=== PATIENT | male | born 1970 | race Caucasian/White ===

== ENCOUNTER 2017-07-02 12:32 | Emergency (ER) | payer MEDICARE, MEDICAID ==
[~2017-07-02] VITALS: Ht 185.4 cm; Wt 116.0 kg
[~2017-07-02 12:32] MED LIST: ALBU6.7H INH; ALBU8.5H8 IH; ARIP2TAB3 PO; AZIT250T81 PO; DIPH-423 PO; LEVO25TA50 PO; LISI-600 PO; LORA10CA9 PO; METH4TAB81 PO; OXYC15TA82 PO; [UNRECOGNIZED DRUG - CODE] PO
[2017-07-02] MEDS ORDERED: LEVO25TA7 PO (15:45)
[2017-07-02] MEDS ORDERED: LISI30TA4 PO (15:45)
[2017-07-02] MEDS ORDERED: OMEP40CA37 PO (15:45)
[2017-07-02] MEDS ORDERED: AMOX-419 PO (15:45)
[2017-07-02] MEDS ORDERED: amox tr/potassium clavulanate 875/125mg TAB PO ONE (15:45)
[2017-07-02 16:05] VITALS: BP 177/111
== END 2017-07-02 16:10 | disposition home or self-care (01) ==
LOC: ER 12:33
DX: Z76.0 Encounter for issue of repeat prescription (principal); J32.1 Chronic frontal sinusitis; J32.0 Chronic maxillary sinusitis; J06.9 Acute upper respiratory infection, unspecified; E78.00 Pure hypercholesterolemia, unspecified; I10 Essential (primary) hypertension; E11.9 Type 2 diabetes mellitus without complications; E03.9 Hypothyroidism, unspecified; F15.90 Other stimulant use, unspecified, uncomplicated; Z98.890 Other specified postprocedural states; Z88.5 Allergy status to narcotic agent; Z59.0 Homelessness; Z56.0 Unemployment, unspecified; Z79.899 Other long term (current) drug therapy
CPT/HCPCS: 99283

== ENCOUNTER 2017-08-12 11:30 | Emergency (ER) | payer MEDICARE, MEDICAID ==
[~2017-08-12 11:30] MED LIST changes: +LEVO25TA7 PO; +LISI30TA4 PO
[2017-08-12] MEDS ORDERED: MUPI1OIN8 BOTHNARES (15:18)
[2017-08-12] MEDS ORDERED: SULF1TAB49 PO (15:18)
[2017-08-12] MEDS ORDERED: CEPH-572 PO (15:18)
== END 2017-08-12 12:59 | disposition left against medical advice (07) ==
LOC: ER 11:31
DX: Z53.21 Procedure and treatment not carried out due to patient leaving prior to being seen by health care provider (principal)

== ENCOUNTER 2017-08-12 13:29 | Emergency (ER) | payer MEDICAID, MEDICARE ==
[~2017-08-12] VITALS: Ht 185.4 cm; Wt 118.2 kg
[2017-08-12 13:37] VITALS: BP 145/121
[2017-08-12] MEDS ORDERED: MUPI1OIN8 BOTHNARES (15:18)
[2017-08-12] MEDS ORDERED: CEPH-572 PO (15:18)
[2017-08-12] MEDS ORDERED: SULF1TAB49 PO (15:18)
== END 2017-08-12 15:31 | disposition home or self-care (01) ==
LOC: ER 13:29
DX: L03.113 Cellulitis of right upper limb (principal); L03.114 Cellulitis of left upper limb; L03.211 Cellulitis of face; L03.811 Cellulitis of head [any part, except face]; L03.115 Cellulitis of right lower limb; F15.10 Other stimulant abuse, uncomplicated; E78.00 Pure hypercholesterolemia, unspecified; I10 Essential (primary) hypertension; E11.9 Type 2 diabetes mellitus without complications; E03.9 Hypothyroidism, unspecified; Z22.322 Carrier or suspected carrier of Methicillin resistant Staphylococcus aureus; Z98.890 Other specified postprocedural states; Z59.0 Homelessness; Z56.0 Unemployment, unspecified; Z88.5 Allergy status to narcotic agent; Z79.899 Other long term (current) drug therapy; Z88.8 Allergy status to other drugs, medicaments and biological substances
CPT/HCPCS: 99283

== ENCOUNTER 2019-11-14 18:41 | Emergency (ER) | payer MEDICAID ==
[~2019-11-14] VITALS: Ht 182.9 cm; Wt 147.0 kg
[~2019-11-14 18:41] MED LIST changes: -ALBU6.7H INH; +ALBU6.7H9 INH; +MUPI1OIN8 BOTHNARES
[2019-11-14 19:13] LABS: BASOPHILS # (AUTO) 0.1 X10'3 (0-0.2); BASOPHILS % (AUTO) 1.1 % (0-1); EOSINOPHILS # (AUTO) 0.2 X10'3 (0-0.9); EOSINOPHILS % (AUTO) 2.4 % (0-6); HEMATOCRIT 45.2 % (42.0-52.0); HEMOGLOBIN 15.3 g/dl (14.0-17.9); LYMPHOCYTES # (AUTO) 2.6 X10'3 (1.1-4.8); LYMPHOCYTES % (AUTO) 28.8 % (21-51); MEAN CORPUSCULAR HEMOGLOBIN 33.2 PG (27.0-31.0); MEAN CORPUSCULAR HGB CONC 33.9 g/dL (33.0-36.5); MEAN PLATELET VOLUME 7.3 FL (7.4-10.4); MONOCYTES # (AUTO) 0.5 X10'3 (0-0.9); MONOCYTES % (AUTO) 5.5 % (2-12); NEUTROPHILS # (AUTO) 5.5 X10'3 (1.8-7.7); NEUTROPHILS % (AUTO) 62.2 % (42-75); PLATELET COUNT 311 X10'3 (140-440); RED BLOOD COUNT 4.61 X10'6 (4.70-6.10); RED CELL DISTRIBUTION WIDTH 13.1 % (11.5-14.5); WHITE BLOOD COUNT 8.9 X10'3 (4.5-11.0)
[2019-11-14] MEDS ORDERED: methylPREDNISolone sod succ 125mg/2ml vial IV ONE (19:25)
[2019-11-14] MEDS ORDERED: normal saline 1000ML IV soln IVB ONE (19:25)
[2019-11-14 19:26] LABS: ALANINE AMINOTRANSFERASE 49 U/L (12-78); ALKALINE PHOSPHATASE 69 IU/L (46-116); ANION GAP 6 (8-16); ASPARTATE AMINO TRANSFERASE 50 U/L (10-37); BILIRUBIN,TOTAL 0.3 MG/DL (0.1-1.0); BLOOD UREA NITROGEN 17 MG/DL (7-18); BUN/CREATININE RATIO 12.1 (5.4-32.0); CALCIUM 8.7 MG/DL (8.5-10.1); CHLORIDE 103 MMOL/L (99-107); GLUCOSE 106 MG/DL (70-104); POTASSIUM 3.9 MMOL/L (3.5-5.1); SODIUM 139 MMOL/L (135-145); TOTAL CARBON DIOXIDE 29.9 MMOL/L (24-32); eGFR 53 ML/MIN
[2019-11-14 19:43] LABS: PARTIAL THROMBOPLASTIN TIME 32 SECONDS (22-32)
[2019-11-14 19:49] LABS: D-DIMER 0.33 MG/L FEU (0-0.50)
[2019-11-14] MEDS ORDERED: ALBU8HFA PO (21:11)
[2019-11-14] MEDS ORDERED: LISI40TA4 PO (21:11)
[2019-11-14] MEDS ORDERED: PRED20TA PO (21:11)
[2019-11-14] MEDS ORDERED: AZIT500T PO (21:11)
[2019-11-14 21:55] VITALS: BP 141/105
== END 2019-11-14 21:27 | disposition home or self-care (01) ==
LOC: ER 18:41
DX: S83.91XA Sprain of unspecified site of right knee, initial encounter (principal); J40 Bronchitis, not specified as acute or chronic; I51.7 Cardiomegaly; E78.00 Pure hypercholesterolemia, unspecified; I10 Essential (primary) hypertension; E11.9 Type 2 diabetes mellitus without complications; E03.9 Hypothyroidism, unspecified; F17.200 Nicotine dependence, unspecified, uncomplicated; F15.90 Other stimulant use, unspecified, uncomplicated; Z90.49 Acquired absence of other specified parts of digestive tract; Z98.890 Other specified postprocedural states; Z59.0 Homelessness; Z56.0 Unemployment, unspecified; Z88.5 Allergy status to narcotic agent; Z88.8 Allergy status to other drugs, medicaments and biological substances; Z79.2 Long term (current) use of antibiotics; Z79.899 Other long term (current) drug therapy; X58.XXXA Exposure to other specified factors, initial encounter; Y93.89 Activity, other specified; Y92.89 Other specified places as the place of occurrence of the external cause; Y99.8 Other external cause status
CPT/HCPCS: 36415; 71045; 73564; 80053; 83880; 84484; 85025; 85379; 85610; 85730; 93005; 96374; 99285; J2930; J7030

== ENCOUNTER 2020-02-07 11:22 | Emergency (ER) | payer MEDICARE, MEDICAID ==
[~2020-02-07] VITALS: Ht 185.4 cm; Wt 113.0 kg
[2020-02-07 12:56] LABS: BASOPHILS # (AUTO) 0.1 X10'3 (0-0.2); BASOPHILS % (AUTO) 0.7 % (0-1); EOSINOPHILS # (AUTO) 0.2 X10'3 (0-0.9); EOSINOPHILS % (AUTO) 1.6 % (0-6); HEMATOCRIT 45.2 % (42.0-52.0); HEMOGLOBIN 15.1 g/dl (14.0-17.9); LYMPHOCYTES # (AUTO) 1.6 X10'3 (1.1-4.8); LYMPHOCYTES % (AUTO) 15.3 % (21-51); MEAN CORPUSCULAR HEMOGLOBIN 32.5 PG (27.0-31.0); MEAN CORPUSCULAR HGB CONC 33.4 g/dL (33.0-36.5); MEAN CORPUSCULAR VOLUME 97.1 FL (78-98); MEAN PLATELET VOLUME 7.4 FL (7.4-10.4); MONOCYTES # (AUTO) 0.6 X10'3 (0-0.9); MONOCYTES % (AUTO) 5.8 % (2-12); NEUTROPHILS # (AUTO) 7.9 X10'3 (1.8-7.7); NEUTROPHILS % (AUTO) 76.6 % (42-75); PLATELET COUNT 326 X10'3 (140-440); RED BLOOD COUNT 4.65 X10'6 (4.70-6.10); RED CELL DISTRIBUTION WIDTH 14.5 % (11.5-14.5); WHITE BLOOD COUNT 10.3 X10'3 (4.5-11.0)
[2020-02-07 13:20] LABS: ALANINE AMINOTRANSFERASE 49 U/L (12-78); ALBUMIN 4.1 G/DL (3.4-5.0); ALKALINE PHOSPHATASE 57 IU/L (46-116); ANION GAP 7 (8-16); ASPARTATE AMINO TRANSFERASE 53 U/L (10-37); BILIRUBIN,TOTAL 0.5 MG/DL (0.1-1.0); BLOOD UREA NITROGEN 15 MG/DL (7-18); BUN/CREATININE RATIO 11.9 (5.4-32.0); CALCIUM 9.4 MG/DL (8.5-10.1); CHLORIDE 102 MMOL/L (99-107); CREATININE 1.26 MG/DL (0.60-1.10); GLUCOSE 130 MG/DL (70-104); POTASSIUM 4.1 MMOL/L (3.5-5.1); SODIUM 139 MMOL/L (135-145); TOTAL CARBON DIOXIDE 29.8 MMOL/L (24-32); TOTAL PROTEIN 8.3 G/DL (6.4-8.2); eGFR 60 ML/MIN
[2020-02-07] MEDS ORDERED: LEVO50TA8 PO (14:21)
[2020-02-07 14:37] VITALS: BP 199/138
== END 2020-02-07 14:42 | disposition home or self-care (01) ==
LOC: ER 11:22
DX: E03.8 Other specified hypothyroidism (principal); M79.606 Pain in leg, unspecified; R53.83 Other fatigue; E78.00 Pure hypercholesterolemia, unspecified; I10 Essential (primary) hypertension; E11.9 Type 2 diabetes mellitus without complications; G89.29 Other chronic pain; F15.90 Other stimulant use, unspecified, uncomplicated; Z90.89 Acquired absence of other organs; Z98.890 Other specified postprocedural states; Z72.89 Other problems related to lifestyle; Z56.0 Unemployment, unspecified; Z59.0 Homelessness; Z88.5 Allergy status to narcotic agent; Z88.8 Allergy status to other drugs, medicaments and biological substances; Z79.2 Long term (current) use of antibiotics; Z79.899 Other long term (current) drug therapy
CPT/HCPCS: 36415; 80053; 83880; 84443; 85025; 99284

== ENCOUNTER → 2020-06-08 | Emergency (ER) | payer OTHER, MEDICAID ==
[~2020-06-08] VITALS: Ht 185.4 cm; Wt 151.1 kg
[~2020-06-08] MED LIST changes: +LEVO50TA8 PO
[2020-06-08 16:05] VITALS: BP 197/105
== END | disposition left against medical advice (07) ==
LOC: ER 15:52
DX: I10 Essential (primary) hypertension (principal); Z53.21 Procedure and treatment not carried out due to patient leaving prior to being seen by health care provider

== ENCOUNTER 2021-04-13 14:51 | Inpatient (IN) | payer OTHER, MEDICAID ==
[~2021-04-13] VITALS: Ht 185.4 cm; Wt 136.4 kg
[2021-04-13 02:00] VITALS: BP 185/90
[~2021-04-13 14:51] MED LIST changes: +ALBU8.5H17 IH; -ALBU8.5H8 IH; -LISI-600 PO; +LISI20TA28 PO
[2021-04-13 15:36] LABS: EOSINOPHILS # (AUTO) 0.1 X10'3 (0-0.9); EOSINOPHILS % (AUTO) 1.4 % (0-6); MEAN CORPUSCULAR VOLUME 94.2 FL (78-98); MEAN PLATELET VOLUME 7.6 FL (7.4-10.4); MONOCYTES # (AUTO) 0.2 X10'3 (0-0.9)
[2021-04-13 15:37] LABS: BASOPHILS % (AUTO) 0.5 % (0-1); HEMATOCRIT 40.7 % (42.0-52.0); HEMOGLOBIN 13.9 g/dl (14.0-17.9); LYMPHOCYTES # (AUTO) 1.1 X10'3 (1.1-4.8); LYMPHOCYTES % (AUTO) 18.1 % (21-51); MEAN CORPUSCULAR HEMOGLOBIN 32.2 PG (27.0-31.0); MEAN CORPUSCULAR HGB CONC 34.2 g/dL (33.0-36.5); MONOCYTES % (AUTO) 3.8 % (2-12); NEUTROPHILS # (AUTO) 4.5 X10'3 (1.8-7.7); NEUTROPHILS % (AUTO) 76.2 % (42-75); PLATELET COUNT 240 X10'3 (140-440); RED BLOOD COUNT 4.32 X10'6 (4.70-6.10); RED CELL DISTRIBUTION WIDTH 14.5 % (11.5-14.5); WHITE BLOOD COUNT 5.9 X10'3 (4.5-11.0)
[2021-04-13 15:44] LABS: ALANINE AMINOTRANSFERASE 44 U/L (12-78); ALBUMIN 3.6 G/DL (3.4-5.0); ALBUMIN/GLOBULIN RATIO 0.8 (1.1-1.5); ALKALINE PHOSPHATASE 67 IU/L (46-116); ANION GAP 4 (8-16); ASPARTATE AMINO TRANSFERASE 48 U/L (10-37); BILIRUBIN,TOTAL 0.2 MG/DL (0.1-1.0); BLOOD UREA NITROGEN 14 MG/DL (7-18); BUN/CREATININE RATIO 11.3 (5.4-32.0); CALCIUM 8.4 MG/DL (8.5-10.1); CHLORIDE 99 MMOL/L (99-107); CREATININE 1.24 MG/DL (0.60-1.10); GLUCOSE 149 MG/DL (70-104); POTASSIUM 3.8 MMOL/L (3.5-5.1); SODIUM 137 MMOL/L (135-145); TOTAL CARBON DIOXIDE 33.8 MMOL/L (24-32); TOTAL PROTEIN 7.9 G/DL (6.4-8.2); eGFR 61 ML/MIN
[2021-04-13] MEDS ORDERED: dexamethasone sod phosphate 10mg/ml inj IV STA (17:13)
[2021-04-13] MEDS ORDERED: acetaminophen 325mg tablet PO ONE (17:15)
[2021-04-13] MEDS ORDERED: iohexol 350MG/ML 100ml bottle IV ONE (17:30)
[2021-04-13] MEDS ORDERED: TIOT18CA3 INH (17:53)
[2021-04-13] MEDS ORDERED: OMEP-50 PO (17:53)
[2021-04-13] MEDS ORDERED: LISI20TA28 PO (17:53)
[2021-04-13] MEDS ORDERED: AMLO10TA13 PO (17:53)
[2021-04-13] MEDS ORDERED: ALBU8HFA IH (17:53)
[2021-04-13] MEDS ORDERED: FOLI0.4T6 PO (17:53)
[2021-04-13] MEDS ORDERED: PROP20TA6 PO (17:53)
[2021-04-13] MEDS ORDERED: LEVO50TA8 PO (17:53)
[2021-04-13] MEDS ORDERED: potassium Cl 20 mEq SR tablet PO PRN ×2 (18:30)
[2021-04-13] MEDS ORDERED: magnesium 4gm in 100ml NS 100 ML IV PRN (18:30)
[2021-04-13] MEDS ORDERED: magnesium hydroxide 30ml (MOM) UD suspension PO PRN (18:30)
[2021-04-13] MEDS ORDERED: mag hydrox/Alum hydrox/simeth 30ml oral suspension PO PRN (18:30)
[2021-04-13] MEDS ORDERED: potassium Cl 40MEQ/1/2NS 520ml 520 ML IV PRN ×2 (18:30)
[2021-04-13] MEDS ORDERED: magnesium 2GM in 50ml NS 50 ML IV PRN (18:30)
[2021-04-13] MEDS ORDERED: magnesium Cl slow-release 64mg tablet PO PRN (18:30)
[2021-04-13] MEDS ORDERED: ondansetron/PF 4mg/2ml inj IV PRN (18:30)
[2021-04-13] MEDS ORDERED: REMDESIVIR INJ 200 MG in normal saline 100ml IV soln 100 ML IV ONE (18:30)
[2021-04-13] MEDS ORDERED: acetaminophen 325mg tablet PO PRN ×2 (18:30)
[2021-04-13 18:42] LABS: C-REACTIVE PROTEIN 3.37 MG/DL (0.0-0.5)
[2021-04-13] MEDS ORDERED: HYDROmorphone 2mg tablet PO PRN (18:55)
[2021-04-13 19:42] LABS: URINE AMPHETAMINE SCREEN POSITIVE (Neg); URINE BARBITUATE SCREEN NEGATIVE (Neg); URINE BENZODIAZEPINES SCREEN NEGATIVE (Neg); URINE CANNABINOID SCREEN POSITIVE (Neg); URINE COCAINE SCREEN NEGATIVE (Neg); URINE METHADONE SCREEN NEGATIVE (Neg); URINE OPIATE SCREEN NEGATIVE (Neg); URINE PHENCYCLIDINE SCREEN NEGATIVE (Neg)
[2021-04-13] MEDS: K and/or MAG REPLACEMENT MC SCH (20:00)
[2021-04-13] MEDS ORDERED: dexamethasone 4mg/ml inj IV SCH (20:00)
--- NOTE | 2021-04-13 20:47 | NUR ---
Assumed pt. care report from [facility]. All questions answered appropriately. Addendum: 04/13/21 at 2355 by Susan Cobb RN Amended: Links added.
[2021-04-13 21:00] VITALS: BP 163/103
[2021-04-13] MEDS ORDERED: temazepam 15mg capsule PO PRN (21:00)
[2021-04-13] MEDS: albuterol 60 PUFF/8GM Inhaler IH SCH (23:00)
--- NOTE | 2021-04-13 23:15 | NUR ---
While I was on break, per charge nurse's report, Pt. pulled out the IV, took off the Tele monitor, and walked self to the bathroom without calling nurse for help. Bed alarm activated at this time. Addendum: 04/14/21 at 0141 by Susan Cobb RN Amended: Links added.
--- NOTE | 2021-04-13 23:45 | NUR ---
Placed a new PIV to the left AC without incident. Addendum: 04/14/21 at 0143 by Susan Cobb RN Amended: Links added.
[2021-04-14] MEDS: CefTRIAXone 2gm/D5W 50ml BAG 50 ML IV SCH ×2 (00:19→20:26)
[2021-04-14] MEDS: propranolol 40mg tablet PO SCH ×3 (00:20→20:02)
[2021-04-14] MEDS: heparin, porcine 5000 units/ml vial SQ SCH ×3 (00:22→20:02)
--- NOTE | 2021-04-14 01:29 | NUR ---
Order for [facility] per Dr Cardoza at 01:30.
[2021-04-14] MEDS: albuterol 60 PUFF/8GM Inhaler IH SCH ×6 (03:00→22:34)
--- NOTE | 2021-04-14 05:00 | NUR ---
Pt. remains unsettled in bed though out this shift- unable to fully fall asleep d/t to the events of loud snoring and awakening episodes when pt. starts falling asleep. Addressed the concern with Dr. Cardoza via the page which no answer was received- report given to to the charge nurse for f/u during the day. Also, the need for ETHO protocol for the pt. considering pt. reporting drinking events daily about 6 pack a day. Addendum: 04/14/21 at 0720 by Susan Cobb RN Amended: Links added.
--- NOTE | 2021-04-14 06:40 | NUR ---
Problems reprioritized. Patient report given, questions answered & plan of care reviewed with [facility]. Addendum: 04/14/21 at 0752 by Susan Cobb RN Amended: Links added.
[2021-04-14 07:11] LABS: BASOPHILS % (AUTO) 0.2 % (0-1); EOSINOPHILS % (AUTO) 0 % (0-6); HEMATOCRIT 43.1 % (42.0-52.0); HEMOGLOBIN 14.6 g/dl (14.0-17.9); LYMPHOCYTES # (AUTO) 0.8 X10'3 (1.1-4.8); LYMPHOCYTES % (AUTO) 9.9 % (21-51); MEAN CORPUSCULAR HEMOGLOBIN 32.4 PG (27.0-31.0); MEAN CORPUSCULAR HGB CONC 33.9 g/dL (33.0-36.5); MEAN CORPUSCULAR VOLUME 95.3 FL (78-98); MEAN PLATELET VOLUME 7.8 FL (7.4-10.4); MONOCYTES # (AUTO) 0.2 X10'3 (0-0.9); MONOCYTES % (AUTO) 2.3 % (2-12); NEUTROPHILS # (AUTO) 7.1 X10'3 (1.8-7.7); NEUTROPHILS % (AUTO) 87.6 % (42-75); PLATELET COUNT 250 X10'3 (140-440); RED BLOOD COUNT 4.52 X10'6 (4.70-6.10); RED CELL DISTRIBUTION WIDTH 14.4 % (11.5-14.5); WHITE BLOOD COUNT 8.1 X10'3 (4.5-11.0)
[2021-04-14 07:24] LABS: ALANINE AMINOTRANSFERASE 42 U/L (12-78); ALBUMIN 3.5 G/DL (3.4-5.0); ALBUMIN/GLOBULIN RATIO 0.8 (1.1-1.5); ALKALINE PHOSPHATASE 69 IU/L (46-116); ANION GAP 3 (8-16); ASPARTATE AMINO TRANSFERASE 43 U/L (10-37); BILIRUBIN,TOTAL 0.2 MG/DL (0.1-1.0); BLOOD UREA NITROGEN 14 MG/DL (7-18); BUN/CREATININE RATIO 11.6 (5.4-32.0); CALCIUM 8.8 MG/DL (8.5-10.1); CHLORIDE 102 MMOL/L (99-107); CREATININE 1.21 MG/DL (0.60-1.10); GLUCOSE 152 MG/DL (70-104); POTASSIUM 4.5 MMOL/L (3.5-5.1); SODIUM 140 MMOL/L (135-145); TOTAL CARBON DIOXIDE 35.1 MMOL/L (24-32); TOTAL PROTEIN 8.1 G/DL (6.4-8.2); eGFR 63 ML/MIN
[2021-04-14 07:27] LABS: MAGNESIUM 2.2 MG/DL (1.5-2.4)
[2021-04-14] MEDS: K and/or MAG REPLACEMENT MC SCH ×2 (08:00→20:00)
[2021-04-14] MEDS ORDERED: levoTHYROXINE 25mcg tablet PO SCH (08:00)
[2021-04-14] MEDS: folic acid 1mg tablet PO SCH (08:11)
[2021-04-14] MEDS: pantoprazole 40mg Tablet.DR PO SCH (08:11)
[2021-04-14] MEDS: amLODIPine 5mg tablet PO SCH (08:17)
[2021-04-14] MEDS: REMDESIVIR INJ 100 MG in normal saline 100ml IV soln 100 ML IV SCH (08:18)
[2021-04-14] MEDS: lisinopril 20mg tablet PO SCH (08:18)
[2021-04-14] MEDS: dexamethasone 6 MG/D5W 100ml IV.soln (total 101.5ml) IV SCH ×4 (08:18→20:01)
[2021-04-14] MEDS: HYDROmorphone 1 mg/ml syringe IV PRN (10:04)
--- NOTE | 2021-04-14 10:22 | NUR ---
MORNING MDI NOT AVAILABLE AT THIS TIME. WILL FOLLOW UP
[2021-04-14] MEDS ORDERED: LORazepam 0.5 MG tablet PO PRN (12:00)
--- NOTE | 2021-04-14 18:24 | NUR ---
Problems reprioritized. Patient report given, questions answered & plan of care reviewed with DOMENIC Worrell.
[2021-04-14 20:00] VITALS: BP 135/95
[2021-04-14] MEDS: lactobacillus rhamnosus 10,000 MMU CELLS/CAPSULE PO SCH (20:02)
[2021-04-14 22:00] VITALS: BP 132/80
[2021-04-15 01:35] VITALS: BP 169/98
--- NOTE | 2021-04-15 01:35 | NUR ---
hr down to 35bpm non sustaining per tele,vs checked and recorded.BP 169/98 hr-56.paged Dr. Cardoza no new order
[2021-04-15] MEDS: albuterol 60 PUFF/8GM Inhaler IH SCH ×6 (03:13→23:33)
[2021-04-15 06:00] VITALS: BP 189/116
[2021-04-15] MEDS: levoTHYROXINE 125mcg tablet PO SCH (07:00)
[2021-04-15 07:22] LABS: BASOPHILS # (AUTO) 0.1 X10'3 (0-0.2); BASOPHILS % (AUTO) 0.5 % (0-1); EOSINOPHILS % (AUTO) 0 % (0-6); LYMPHOCYTES % (AUTO) 10.1 % (21-51); MEAN CORPUSCULAR HEMOGLOBIN 32.4 PG (27.0-31.0); MEAN CORPUSCULAR VOLUME 95.4 FL (78-98); MEAN PLATELET VOLUME 8.3 FL (7.4-10.4); MONOCYTES # (AUTO) 0.4 X10'3 (0-0.9); MONOCYTES % (AUTO) 3.7 % (2-12); NEUTROPHILS # (AUTO) 8.9 X10'3 (1.8-7.7); NEUTROPHILS % (AUTO) 85.7 % (42-75); PLATELET COUNT 286 X10'3 (140-440); RED BLOOD COUNT 4.92 X10'6 (4.70-6.10); RED CELL DISTRIBUTION WIDTH 14.3 % (11.5-14.5); WHITE BLOOD COUNT 10.4 X10'3 (4.5-11.0)
[2021-04-15 07:49] LABS: ALANINE AMINOTRANSFERASE 44 U/L (12-78); ALBUMIN 3.5 G/DL (3.4-5.0); ALBUMIN/GLOBULIN RATIO 0.7 (1.1-1.5); ALKALINE PHOSPHATASE 70 IU/L (46-116); ANION GAP 8 (8-16); ASPARTATE AMINO TRANSFERASE 40 U/L (10-37); BILIRUBIN,TOTAL 0.2 MG/DL (0.1-1.0); BLOOD UREA NITROGEN 17 MG/DL (7-18); BUN/CREATININE RATIO 16.3 (5.4-32.0); CALCIUM 8.8 MG/DL (8.5-10.1); CHLORIDE 99 MMOL/L (99-107); CREATININE 1.04 MG/DL (0.60-1.10); GLUCOSE 140 MG/DL (70-104); MAGNESIUM 2.2 MG/DL (1.5-2.4); POTASSIUM 4.5 MMOL/L (3.5-5.1); SODIUM 141 MMOL/L (135-145); TOTAL CARBON DIOXIDE 33.8 MMOL/L (24-32); TOTAL PROTEIN 8.6 G/DL (6.4-8.2); eGFR 75 ML/MIN
[2021-04-15] MEDS: propranolol 40mg tablet PO SCH ×2 (08:16→20:11)
[2021-04-15] MEDS: heparin, porcine 5000 units/ml vial SQ SCH ×2 (08:16→20:11)
[2021-04-15] MEDS: lisinopril 20mg tablet PO SCH (08:18)
[2021-04-15] MEDS: pantoprazole 40mg Tablet.DR PO SCH (08:18)
[2021-04-15] MEDS: lactobacillus rhamnosus 10,000 MMU CELLS/CAPSULE PO SCH ×2 (08:19→20:11)
[2021-04-15] MEDS: amLODIPine 5mg tablet PO SCH (08:19)
[2021-04-15] MEDS: folic acid 1mg tablet PO SCH (08:19)
[2021-04-15] MEDS: REMDESIVIR INJ 100 MG in normal saline 100ml IV soln 100 ML IV SCH (08:20)
[2021-04-15] MEDS: dexamethasone 6 MG/D5W 100ml IV.soln (total 101.5ml) IV SCH ×4 (08:20→20:11)
[2021-04-15] MEDS: nicotine 14mg patch - 24hr TD SCH (08:20)
[2021-04-15] MEDS: CefTRIAXone 2gm/D5W 50ml BAG 50 ML IV SCH (08:20)
[2021-04-15] MEDS: K and/or MAG REPLACEMENT MC SCH ×2 (08:22→20:00)
[2021-04-15] MEDS: HYDROmorphone 1 mg/ml syringe IV PRN (08:40)
[2021-04-15 10:00] VITALS: BP 125/71
[2021-04-15 14:00] VITALS: BP 156/99
[2021-04-15 18:30] VITALS: BP 150/78
[2021-04-15 21:46] VITALS: BP 146/80
--- NOTE | 2021-04-16 02:00 | NUR ---
refused vs,tele monitor restarted.
[2021-04-16] MEDS: albuterol 60 PUFF/8GM Inhaler IH SCH ×6 (02:12→23:43)
[2021-04-16 07:37] LABS: BASOPHILS % (AUTO) 0.5 % (0-1); EOSINOPHILS % (AUTO) 0 % (0-6); HEMATOCRIT 44.2 % (42.0-52.0); LYMPHOCYTES # (AUTO) 1.2 X10'3 (1.1-4.8); LYMPHOCYTES % (AUTO) 13.2 % (21-51); MEAN CORPUSCULAR HEMOGLOBIN 32.3 PG (27.0-31.0); MEAN PLATELET VOLUME 8.1 FL (7.4-10.4); MONOCYTES # (AUTO) 0.5 X10'3 (0-0.9); MONOCYTES % (AUTO) 5.6 % (2-12); NEUTROPHILS # (AUTO) 7.4 X10'3 (1.8-7.7); NEUTROPHILS % (AUTO) 80.7 % (42-75); PLATELET COUNT 327 X10'3 (140-440); RED BLOOD COUNT 4.65 X10'6 (4.70-6.10); RED CELL DISTRIBUTION WIDTH 14.5 % (11.5-14.5); WHITE BLOOD COUNT 9.1 X10'3 (4.5-11.0)
[2021-04-16] MEDS: K and/or MAG REPLACEMENT MC SCH ×2 (08:00→20:00)
[2021-04-16] MEDS: folic acid 1mg tablet PO SCH (08:18)
[2021-04-16] MEDS: amLODIPine 5mg tablet PO SCH (08:39)
[2021-04-16] MEDS: lactobacillus rhamnosus 10,000 MMU CELLS/CAPSULE PO SCH ×2 (08:39→19:37)
[2021-04-16] MEDS: pantoprazole 40mg Tablet.DR PO SCH (08:39)
[2021-04-16] MEDS: CefTRIAXone 2gm/D5W 50ml BAG 50 ML IV SCH (08:40)
[2021-04-16] MEDS: REMDESIVIR INJ 100 MG in normal saline 100ml IV soln 100 ML IV SCH (08:40)
[2021-04-16] MEDS: lisinopril 20mg tablet PO SCH (08:40)
[2021-04-16] MEDS: dexamethasone 6 MG/D5W 100ml IV.soln (total 101.5ml) IV SCH ×4 (08:40→19:37)
[2021-04-16] MEDS: propranolol 40mg tablet PO SCH ×2 (08:45→19:37)
[2021-04-16] MEDS: nicotine 14mg patch - 24hr TD SCH (08:46)
[2021-04-16] MEDS: levoTHYROXINE 125mcg tablet PO SCH (08:46)
[2021-04-16] MEDS: heparin, porcine 5000 units/ml vial SQ SCH ×2 (08:46→19:37)
[2021-04-16 08:48] LABS: ALANINE AMINOTRANSFERASE 39 U/L (12-78); ALBUMIN 3.3 G/DL (3.4-5.0); ALBUMIN/GLOBULIN RATIO 0.7 (1.1-1.5); ALKALINE PHOSPHATASE 65 IU/L (46-116); ANION GAP 10 (8-16); ASPARTATE AMINO TRANSFERASE 32 U/L (10-37); BILIRUBIN,TOTAL 0.2 MG/DL (0.1-1.0); BLOOD UREA NITROGEN 22 MG/DL (7-18); BUN/CREATININE RATIO 19.8 (5.4-32.0); CALCIUM 8.9 MG/DL (8.5-10.1); CHLORIDE 101 MMOL/L (99-107); CREATININE 1.11 MG/DL (0.60-1.10); GLUCOSE 158 MG/DL (70-104); MAGNESIUM 2.2 MG/DL (1.5-2.4); POTASSIUM 4.3 MMOL/L (3.5-5.1); SODIUM 142 MMOL/L (135-145); TOTAL CARBON DIOXIDE 31.3 MMOL/L (24-32); eGFR 70 ML/MIN
[2021-04-16 10:00] VITALS: BP 140/82
--- NOTE | 2021-04-16 10:02 | NUR ---
Initial: Pt presented with c/o SOB and admit for COVID PNA. Currently on a regular diet and eating well with 100% PO intake throughout LOS. D/w dietary to send double protein TID for satiety. LBM 04/13, with PRN bowel care available though not documented to be given. D/w dietary to send prunes and prune juice with next meal to assist with bowel regularity. Will continue to follow and monitor need for further nutrition intervention. Recommendations: 1) Continue regular diet 2) Double eggs WB, double meat BIDLD for satiety 3) Routine bowel care 4) Scaled weight this admit; weekly scaled weights thereafter Addendum: 04/16/21 at [address] Amended: Links added.
--- NOTE | 2021-04-16 11:55 | NUR ---
O2 Sat at rest on room air:_86__% If below 89%: Recovery O2 Sat at rest on _3__LPM:__93_%:___% via nc (mask/nasal cannula, etc..) No further documentation is necessary. If O2 Sat did not drop below 89% on room air,ambulate patient on room air. O2 Sat while ambulating on room air:___% Recovery O2 Sat while ambulating on ___LPM:___% No further documentation is necessary. If patient does not drop below 89% while ambulating, he/she does not qualify for home O2.
[2021-04-16 14:00] VITALS: BP 155/98
[2021-04-16 20:30] VITALS: BP 127/85
[2021-04-16 21:30] VITALS: BP 140/73
--- NOTE | 2021-04-16 21:30 | NUR ---
hr 32bpm per tele non sustaining,vs checked and recorded.
[2021-04-17 02:00] VITALS: BP 124/85
[2021-04-17] MEDS: albuterol 60 PUFF/8GM Inhaler IH SCH ×3 (03:55→11:12)
[2021-04-17 06:00] VITALS: BP 137/98
[2021-04-17] MEDS: lisinopril 20mg tablet PO SCH (07:52)
[2021-04-17] MEDS: folic acid 1mg tablet PO SCH (07:52)
[2021-04-17] MEDS: lactobacillus rhamnosus 10,000 MMU CELLS/CAPSULE PO SCH (07:52)
[2021-04-17] MEDS: levoTHYROXINE 125mcg tablet PO SCH (07:52)
[2021-04-17] MEDS: amLODIPine 5mg tablet PO SCH (07:52)
[2021-04-17] MEDS: pantoprazole 40mg Tablet.DR PO SCH (07:52)
[2021-04-17] MEDS: heparin, porcine 5000 units/ml vial SQ SCH (07:53)
[2021-04-17] MEDS: CefTRIAXone 2gm/D5W 50ml BAG 50 ML IV SCH (07:53)
[2021-04-17] MEDS: REMDESIVIR INJ 100 MG in normal saline 100ml IV soln 100 ML IV SCH (07:53)
[2021-04-17] MEDS: dexamethasone 6 MG/D5W 100ml IV.soln (total 101.5ml) IV SCH ×2 (07:53)
[2021-04-17] MEDS: nicotine 14mg patch - 24hr TD SCH (07:53)
[2021-04-17] MEDS: propranolol 40mg tablet PO SCH (07:55)
[2021-04-17 07:58] LABS: BASOPHILS % (AUTO) 0.4 % (0-1); EOSINOPHILS % (AUTO) 0 % (0-6); HEMATOCRIT 44.9 % (42.0-52.0); HEMOGLOBIN 15.3 g/dl (14.0-17.9); LYMPHOCYTES # (AUTO) 1.3 X10'3 (1.1-4.8); LYMPHOCYTES % (AUTO) 14.9 % (21-51); MEAN CORPUSCULAR HEMOGLOBIN 32.1 PG (27.0-31.0); MEAN CORPUSCULAR HGB CONC 34.2 g/dL (33.0-36.5); MEAN CORPUSCULAR VOLUME 94.1 FL (78-98); MEAN PLATELET VOLUME 7.8 FL (7.4-10.4); MONOCYTES # (AUTO) 0.7 X10'3 (0-0.9); NEUTROPHILS # (AUTO) 6.5 X10'3 (1.8-7.7); NEUTROPHILS % (AUTO) 76.7 % (42-75); PLATELET COUNT 340 X10'3 (140-440); RED BLOOD COUNT 4.77 X10'6 (4.70-6.10); RED CELL DISTRIBUTION WIDTH 14.4 % (11.5-14.5); WHITE BLOOD COUNT 8.5 X10'3 (4.5-11.0)
[2021-04-17 08:19] LABS: ALANINE AMINOTRANSFERASE 70 U/L (12-78); ALBUMIN 3.3 G/DL (3.4-5.0); ALBUMIN/GLOBULIN RATIO 0.7 (1.1-1.5); ALKALINE PHOSPHATASE 69 IU/L (46-116); ANION GAP 7 (8-16); ASPARTATE AMINO TRANSFERASE 52 U/L (10-37); BILIRUBIN,TOTAL 0.3 MG/DL (0.1-1.0); BLOOD UREA NITROGEN 24 MG/DL (7-18); BUN/CREATININE RATIO 22.9 (5.4-32.0); C-REACTIVE PROTEIN 0.32 MG/DL (0.0-0.5); CALCIUM 9.1 MG/DL (8.5-10.1); CHLORIDE 103 MMOL/L (99-107); CREATININE 1.05 MG/DL (0.60-1.10); GLUCOSE 148 MG/DL (70-104); LACTATE DEHYDROGENASE 268 U/L (85-227); MAGNESIUM 2.1 MG/DL (1.5-2.4); POTASSIUM 4.2 MMOL/L (3.5-5.1); SODIUM 142 MMOL/L (135-145); TOTAL CARBON DIOXIDE 32.1 MMOL/L (24-32); TOTAL PROTEIN 8.1 G/DL (6.4-8.2); eGFR 74 ML/MIN
[2021-04-17 08:28] LABS: D-DIMER 0.29 MG/L FEU (0-0.50)
[2021-04-17] MEDS: K and/or MAG REPLACEMENT MC SCH (08:59)
[2021-04-17] MEDS ORDERED: PRED10TA23 PO (09:45)
[2021-04-17] MEDS ORDERED: THIA50TA10 PO (09:45)
[2021-04-17] MEDS ORDERED: ALBU8HFA IH (09:45)
[2021-04-17 10:00] VITALS: BP 130/85
[2021-04-17] MEDS ORDERED: LEVO100T9 PO ×3 (19:00)
[2021-04-17] MEDS ORDERED: LEVO25TA7 PO (19:00)
== END 2021-04-17 16:20 | disposition home or self-care (01) | DRG 177 ==
LOC: ER 14:52 → ED HOLD 18:30 → UNDOADMIN 18:37 → EDBEDREQ 18:55 → ED HOLD 21:28 → ORTHO 4S 21:28
PROVIDERS: ADMIT Internal Medicine; ATTEND Internal Medicine
PROC: XW033E5 Introduction of Remdesivir Anti-infective into Peripheral Vein, Percutaneous Approach, New Technology Group 5 (ICD-10-PCS; principal; 2021-04-13)
PROC: B32T1ZZ Computerized Tomography (CT Scan) of Left Pulmonary Artery using Low Osmolar Contrast (ICD-10-PCS; 2021-04-13)
PROC: B3201ZZ Computerized Tomography (CT Scan) of Thoracic Aorta using Low Osmolar Contrast (ICD-10-PCS; 2021-04-13)
PROC: B32S1ZZ Computerized Tomography (CT Scan) of Right Pulmonary Artery using Low Osmolar Contrast (ICD-10-PCS; 2021-04-13)
DX: U07.1 COVID-19 (principal); J12.82 Pneumonia due to coronavirus disease 2019; J96.01 Acute respiratory failure with hypoxia; J44.0 Chronic obstructive pulmonary disease with (acute) lower respiratory infection; N18.30 Chronic kidney disease, stage 3 unspecified; G89.4 Chronic pain syndrome; F10.20 Alcohol dependence, uncomplicated; E11.22 Type 2 diabetes mellitus with diabetic chronic kidney disease; E03.9 Hypothyroidism, unspecified; M54.50 Low back pain, unspecified; F15.90 Other stimulant use, unspecified, uncomplicated; I12.9 Hypertensive chronic kidney disease with stage 1 through stage 4 chronic kidney disease, or unspecified chronic kidney disease; F17.210 Nicotine dependence, cigarettes, uncomplicated; E78.00 Pure hypercholesterolemia, unspecified; E78.5 Hyperlipidemia, unspecified; K21.9 Gastro-esophageal reflux disease without esophagitis; K76.0 Fatty (change of) liver, not elsewhere classified; Z59.00 Homelessness unspecified; Z90.49 Acquired absence of other specified parts of digestive tract; Z91.19 Patient's noncompliance with other medical treatment and regimen; Z88.5 Allergy status to narcotic agent; Z56.0 Unemployment, unspecified; Z71.51 Drug abuse counseling and surveillance of drug abuser
CPT/HCPCS: 36415; 71045; 71275; 80053; 80305; 82728; 83605; 83615; 83735; 83880; 84145; 84443; 84484; 85025; 85379; 85384; 86140; 87040; 87635; 93005; 93306; 94640; 94760; 96374; 97116; 97161; 97530; 99285; C9803; G0378; J0696; J1100; J1170; J1644; J7060; Q9967

== ENCOUNTER 2021-04-27 22:04 | Emergency (ER) | payer OTHER, MEDICAID ==
[~2021-04-27] VITALS: Ht 182.9 cm; Wt 150.0 kg
[~2021-04-27 22:04] MED LIST changes: -ALBU6.7H9 INH; -ALBU8.5H17 IH; +ALBU8HFA IH; +AMLO10TA13 PO; -ARIP2TAB3 PO; -AZIT250T81 PO; -DIPH-423 PO; +FOLI0.4T6 PO; +LEVO100T9 PO; -LEVO25TA50 PO; -LEVO50TA8 PO; -LISI30TA4 PO; -LORA10CA9 PO; -METH4TAB81 PO; -MUPI1OIN8 BOTHNARES; +OMEP-50 PO; -OXYC15TA82 PO; +PRED10TA23 PO; +PROP20TA6 PO; +THIA50TA10 PO; -[UNRECOGNIZED DRUG - CODE] PO
[2021-04-27 22:55] LABS: BASOPHILS # (AUTO) 0.1 X10'3 (0-0.2); BASOPHILS % (AUTO) 1.4 % (0-1); EOSINOPHILS # (AUTO) 0.1 X10'3 (0-0.9); EOSINOPHILS % (AUTO) 1.1 % (0-6); HEMATOCRIT 40.1 % (42.0-52.0); HEMOGLOBIN 13.6 g/dl (14.0-17.9); LYMPHOCYTES # (AUTO) 2.7 X10'3 (1.1-4.8); LYMPHOCYTES % (AUTO) 28.3 % (21-51); MEAN CORPUSCULAR HGB CONC 33.9 g/dL (33.0-36.5); MEAN CORPUSCULAR VOLUME 94.4 FL (78-98); MEAN PLATELET VOLUME 7.7 FL (7.4-10.4); MONOCYTES # (AUTO) 0.6 X10'3 (0-0.9); MONOCYTES % (AUTO) 6.5 % (2-12); NEUTROPHILS % (AUTO) 62.7 % (42-75); PLATELET COUNT 417 X10'3 (140-440); RED BLOOD COUNT 4.25 X10'6 (4.70-6.10); RED CELL DISTRIBUTION WIDTH 14.6 % (11.5-14.5); WHITE BLOOD COUNT 9.5 X10'3 (4.5-11.0)
[2021-04-27 22:56] LABS: ALANINE AMINOTRANSFERASE 45 U/L (12-78); ALBUMIN 3.3 G/DL (3.4-5.0); ALBUMIN/GLOBULIN RATIO 0.8 (1.1-1.5); ALKALINE PHOSPHATASE 55 IU/L (46-116); ANION GAP 8 (8-16); ASPARTATE AMINO TRANSFERASE 26 U/L (10-37); BILIRUBIN,TOTAL 0.2 MG/DL (0.1-1.0); BLOOD UREA NITROGEN 15 MG/DL (7-18); BUN/CREATININE RATIO 10.9 (5.4-32.0); CALCIUM 8.4 MG/DL (8.5-10.1); CHLORIDE 105 MMOL/L (99-107); CREATININE 1.37 MG/DL (0.60-1.10); POTASSIUM 4.4 MMOL/L (3.5-5.1); SODIUM 143 MMOL/L (135-145); TOTAL CARBON DIOXIDE 30.5 MMOL/L (24-32); TOTAL PROTEIN 7.3 G/DL (6.4-8.2); eGFR 55 ML/MIN
[2021-04-27 22:57] LABS: GLUCOSE 160 MG/DL (70-104)
[2021-04-28] MEDS ORDERED: iohexol 350MG/ML 100ml bottle IV ONE (01:57)
[2021-04-28 02:59] VITALS: BP 148/122
[2021-04-28] MEDS ORDERED: normal saline 1000ml 1,000 ML IV ONE (03:55)
== END 2021-04-28 06:57 | disposition home or self-care (01) ==
LOC: ER 22:04
DX: U07.1 COVID-19 (principal); J12.82 Pneumonia due to coronavirus disease 2019; E78.00 Pure hypercholesterolemia, unspecified; I10 Essential (primary) hypertension; E11.9 Type 2 diabetes mellitus without complications; E03.9 Hypothyroidism, unspecified; G89.29 Other chronic pain; F15.90 Other stimulant use, unspecified, uncomplicated; Z56.0 Unemployment, unspecified; Z59.00 Homelessness unspecified; Z72.89 Other problems related to lifestyle; Z88.5 Allergy status to narcotic agent; Z88.8 Allergy status to other drugs, medicaments and biological substances; Z79.899 Other long term (current) drug therapy
CPT/HCPCS: 36415; 71045; 71275; 80053; 83880; 84484; 85025; 93005; 96360; 99285; J7030; Q9967

== ENCOUNTER → 2022-04-06 | Emergency (ER) | payer OTHER, MEDICAID ==
[~2022-04-06] VITALS: Ht 185.4 cm; Wt 148.2 kg
[~2022-04-06] MED LIST changes: +LIDOcaine 1% W/epiNEPHrine 1:200,000 10ml vial IJ ONE; +LIDOcaine 1% w/EPI 1:100,000 30ml vial (MDV) IJ ONE; -OMEP-50 PO; +OMEP20CA16 PO; -PRED10TA23 PO; +SULF1TAB45 PO
--- NOTE | 2022-04-06 23:58 | NUR ---
no answer call #1
[2022-04-07 00:14] VITALS: BP 177/121
--- NOTE | 2022-04-07 01:10 | NUR ---
DRESSING APPLIED TO ID SITE.
== END | disposition home or self-care (01) ==
LOC: ER 22:57
DX: L02.811 Cutaneous abscess of head [any part, except face] (principal); F15.90 Other stimulant use, unspecified, uncomplicated; F17.210 Nicotine dependence, cigarettes, uncomplicated; E78.00 Pure hypercholesterolemia, unspecified; I10 Essential (primary) hypertension; J44.9 Chronic obstructive pulmonary disease, unspecified; E11.9 Type 2 diabetes mellitus without complications; E03.9 Hypothyroidism, unspecified; Z90.49 Acquired absence of other specified parts of digestive tract; Z90.89 Acquired absence of other organs; Z59.00 Homelessness unspecified; Z56.0 Unemployment, unspecified; Z88.5 Allergy status to narcotic agent; Z88.8 Allergy status to other drugs, medicaments and biological substances
CPT/HCPCS: 10060; 99282; 99283